=== PATIENT | male | born 1955 | race Caucasian/White ===

== ENCOUNTER → 2017-02-23 | Outpatient (CLI) | payer BC ==
--- NOTE | 2017-02-23 14:38 | DI ---
XR ANKLE COMPLETE MIN 3VW,02/23/2017 1:22 PM: Clinical History: Acute ankle pain. Previous Exam: None at this facility. Findings: 3 views of the right ankle are obtained, and demonstrate soft tissue swelling over the lateral malleo francois. There is lucency of the calcaneus although the Boehler's angle appears to be maintained. There is no evidence of talar dome defect. Impression: Nondisplaced comminuted calcaneal fracture. Consider CT right lower extremity for further evaluation.
--- NOTE | 2017-02-23 14:39 | DI ---
XR CALCANEUS MIN 2VW,02/23/2017 1:22 PM: Clinical History: Right heel pain. Previous Exam: None at this facility. Findings: A single view of the right calcaneus is obtained, and demonstrates a slightly displaced slightly comm inuted fracture through the right calcaneus. Surrounding soft tissue swelling is noted. Impression: Comminuted slightly displaced right calcaneal fracture. Consider CT calcaneus for further evaluation.
== END ==
LOC: MOB RAD 13:28
PROVIDERS: ATTEND Physician Assistant
DX: S92.001A Unspecified fracture of right calcaneus, initial encounter for closed fracture (principal); W17.89XA Other fall from one level to another, initial encounter; M25.571 Pain in right ankle and joints of right foot; M79.671 Pain in right foot
CPT/HCPCS: 73610; 73650